=== PATIENT | female | born 1990 | race African-American/Black ===

== ENCOUNTER 2019-02-02 14:20 | Emergency (ER) | payer OTHER ==
[~2019-02-02] VITALS: Ht 165.1 cm; Wt 92.5 kg
[2019-02-02 15:27] LABS: BASOPHIL % 0.5 % (0-2); PLATELET COUNT 227 x10^3mcL (130-400)
[2019-02-02 15:29] LABS: microscopic required? YES; urine erythrocyte NEGATIVE (NEGATIVE)
[2019-02-02 15:34] LABS: RED CELL DISTRIBUTION WIDTH 14.8 % (11.5-14.5)
[2019-02-02 15:36] LABS: CARBON DIOXIDE 29.1 mmol/L (21-32); CHLORIDE SERUM 107 mmol/L (98-107); CREATININE SERUM 0.8 mg/dL (0.6-1.0); GFR1 > 60 mL/min; GLUCOSE SERUM 83 mg/dL (74-106); POTASSIUM SERUM 4.8 mmol/L (3.5-5.1); SODIUM SERUM 140 mmol/L (136-145)
[2019-02-02 15:50] LABS: ALKALINE PHOSPHATASE 70 U/L (46-116); ALT/SGPT 16 U/L (14-59); AST/SGOT 15 U/L (15-37); BILIRUBIN TOTAL 0.61 mg/dL (0.20-1.00); LIPASE 59 IU/L (73-393); TOTAL PROTEIN, SERUM 6.6 g/dL (6.4-8.2)
[2019-02-02 16:02] LABS: ALBUMIN 3.1 g/dL (3.4-5.0); T4(THYROXINE) 3.7 ug/dL (4.7-13.3)
[2019-02-02 16:33] VITALS: BP 112/70
== END 2019-02-02 16:33 | disposition home or self-care (01) ==
LOC: ED 14:20
PROVIDERS: Emergency Medicine
DX: R53.1 Weakness (principal); R42 Dizziness and giddiness; R10.811 Right upper quadrant abdominal tenderness; R11.2 Nausea with vomiting, unspecified; R10.32 Left lower quadrant pain
CPT/HCPCS: 36415